=== PATIENT | female | born 1980 | race Caucasian/White ===

== ENCOUNTER 2020-06-19 15:30 | IRF | payer OTHER, SELFPAY ==
--- NOTE | 2020-06-19 16:17 | PC.NURSE ---
This patient, Rylie Cordova, was admitted to [facility] Room 219-01. Patient/family oriented to hospital policies and general routines including ID bracelet, bed and alarms, visiting hours, pain management, procedures, bathroom and other care routines, personal items, smoking policy, room service/diet, and visiting hours. Information on how to activate the Rapid Response Team has been discussed. Patient/Family are encouraged to report perceived risks to care and to ask questions if they do not understand what they are told or what they should do.
[2020-06-19 16:22] VITALS: BMI 30.2
[2020-06-19 16:25] VITALS: BP 123/66; PULSE 93; RESP 20; TEMP 36.8; O2SAT 95
--- NOTE | 2020-06-19 19:58 | PC.NURSE ---
pt had emesis at 1900 and she states she does not tolerate onion and she had eaten a short while before. I will call for julita torrez.
[2020-06-19] MEDS: LACTULOSE 20 GM/30 ML UDC 30 GM PO (21:07)
[2020-06-19] MEDS: GABAPENTIN 400 MG CAPSULE 800 MG PO (21:09)
[2020-06-19] MEDS: ATORVASTATIN 40 MG TABLET 80 MG PO (21:09)
[2020-06-19] MEDS: MELATONIN 3 MG TABLET PO (21:10)
[2020-06-19] MEDS: HEPARIN SODIUM 5,000 UNITS/ML VIAL 5000 UNITS SUB-Q (21:10)
[2020-06-19] MEDS: ACETAMINOPHEN 500 MG TABLET PO (21:17)
[2020-06-19 21:29] VITALS: BP 141/81; PULSE 80; RESP 16; TEMP 36.6; O2SAT 96
[2020-06-20 05:03] LABS: Basophils Percent Auto 0.2 % (0.2-1.2); Eosinophils Absolute Auto 0.2 K/mm3 (0-0.3); Hematocrit 41.1 % (37.0-47.0); Hemoglobin 13.7 g/dL (12.0-15.0); Immature Granulocyte Absolute 0.22 K/mm3 (0.00-0.031); Immature Granulocyte Percent A 1.2 % (0-0.5); Lymphocytes Absolute Auto 4.36 K/mm3 (0.9-3.2); Lymphocytes Percent Auto 23.2 % (18.3-44.2); Mean Corpuscular HGB Conc 33.3 g/dl (32-36); Mean Corpuscular Hemoglobin 30.9 pg (26-34); Mean Corpuscular Volume 92.8 fl (80-100); Mean Platelet Volume 8.2 fl (7.4-10.4); Monocytes Absolute Auto 1.1 K/mm3 (0.1-0.6); Monocytes Percent Auto 5.6 % (2.6-8.5); Neutrophils Absolute Auto 12.9 K/mm3 (1.3-6.7); Neutrophils Percent Auto 68.8 % (45.5-73.1); Platelet Count Result 658 k/mm3 (150-375); Red Blood Count 4.43 M/mm3 (4.2-5.4); Red Cell Distribution Width 13.2 % (11.5-14.5); White Blood Count 18.8 K/mm3 (4.5-10.0)
[2020-06-20 06:00] VITALS: BP 101/67; PULSE 73; RESP 18; TEMP 36.4; O2SAT 99
[2020-06-20] MEDS: HEPARIN SODIUM 5,000 UNITS/ML VIAL 5000 UNITS SUB-Q ×3 (06:05→20:29)
[2020-06-20 06:28] LABS: Anion Gap 8 mmol/L (8-16); Blood Urea Nitrogen 10 mg/dL (7-17); Calcium 8.9 mg/dL (8.4-10.2); Carbon Dioxide 28 mmol/L (22-30); Chloride 99 mmol/L (98-107); Estimated CRCL calculation 112 ml/min; Estimated Glomerular Filt Rate > 60; Glucose 102 mg/dL (65-105); Potassium 3.2 mmol/L (3.4-5.0); Sodium 135 mmol/L (137-145)
[2020-06-20] MEDS: NICOTINE (*PBKC) 7 MG PATCH 1 PATCH TRANSDERM (09:29)
[2020-06-20] MEDS: MULTIVIT/MIN/PREN/FOL AC/IRON TABLET 1 TAB PO (09:30)
[2020-06-20] MEDS: GABAPENTIN 400 MG CAPSULE 800 MG PO ×3 (09:30→17:56)
[2020-06-20] MEDS: ASPIRIN 81 MG CHEWABLE TABLET BY MOUTH (09:30)
[2020-06-20] MEDS: ARIPiprazole 5 MG TABLET PO (09:30)
[2020-06-20] MEDS: predniSONE 20 MG TABLET 60 MG PO (09:30)
[2020-06-20] MEDS: DULoxetine HCL 60 MG CAPSULE.DR PO (09:30)
[2020-06-20] MEDS: ACETAMINOPHEN 500 MG TABLET PO ×2 (09:31→14:25)
--- NOTE | 2020-06-20 09:58 | PM.IMHP ---
H&P: HPI History of Present Illness Date/Time: 06/20/20 09:58 Chief complaint: cva Narrative: Rylie Cordova is a 39 year old female is related to our acute rehab with the diagnosis of stroke / the etiologic diagnosis is punctate acute ischemic infarction of the left side of middle The patient examined [id number] at 9:00 a.m. on June 20, 2020 H and P The patient is a 39-year-old right-handed white woman with a past medical history of headaches and visual disturbances status post right temporal craniotomy with resection in December of 2019 who presented to a local hospital on June 14, 2020 with right facial droop and slurring of the speech. The patient reported that on June 13, 2020 she felt generally unwell and developed gait changes due to bilateral leg weakness and poor balance right hand and foot numbness, blurriness of the vision and multiple bouts of emesis. Her boyfriend reported that when he called the patient that morning she was not acting like herself and her speech was slurred. At around 4:00 p.m. when he arrived at her home the by friend noticed a right facial droop and she was taken to the hospital. CT of the head showed no acute intracranial process. She was transferred to [facility] for further care. The NIHSS upon arrival was 5. She was not given tPA, presented outside the window, and CTA showed no large vessel occlusion some mechanical thrombectomy was not indicated. Of note the patient underwent an MRI guided stereotactic right temporal craniotomy with resection in December of 2019. During the procedure the patient had a seizure. Postop MRI showed more than 95% resection. 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 She was discharged on Keppra for a month and dexamethasone for 3 days. In February 2020 she continue complained of blurriness of the vision and worsening gait in her outpatient neurosurgery follow-up visit. Repeat brain MRI in March 2020 showed multiple new ring-enhancing lesion in the right basal ganglia denisha medulla and nonsensical lesion in the right frontal and chronic right posterior cerebral artery infarcts. She was admitted between April 17 and April 24 a [facility] and Rheumatology and Ophthalmology were consulted. Workup for systemic was colitis was negative at the time. She was given Solu-Medrol 1000 milligram for 5 days and Cytoxan for 6 days. Her symptoms improved. Repeat brain MRI showed that the enhancing lesion had either shrunk or could no longer be visualized. This was suggestive of good treatment response combination of Solu-Medrol and Cytoxan. She failed to attend follow-up appointments. New more I this hospitalization showed new enhancing lesions in the left parieto-occipital region suggestive of TRAIN BRAKE OPERATOR vasculitis reoccurrence. 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 She was given Cytoxan on Tuesday and pulse steroids were implemented. She will receive 1 gram daily for 3 days and transition to an old regimen of prednisone were milligram per kilogram to be slowly tapered at outpatient follow-up. Rheumatology was consulted and agreed with the above plan of Cytoxan and steroids and added Bactrim for P NORBERT prophylaxis given high-dose steroid use. Neurology was also consulted contacted and the patient was placed on aspirin and atorvastatin. Physical examination continues to reveal impaired balance decreased gross motor controlled left-sided weakness and decreased safety awareness her speech is clear and she is good for regular consistency diet. The patient was discharged to us on subcutaneous heparin and will continue on this until the patient is ambulating consistently least 150 feet be daily The patient has not traveled outside the use or had contact with someone who is ill that has trouble after the [place] in the past 21 days. The patient has not traveled ordinary of the [place] that is experiencing known transmission of the [place]
--- NOTE | 2020-06-20 11:26 | PC.NURSE ---
pt refused laxatives this morning stating she had a bowel movement last night. updated.
[2020-06-20] MEDS: POTASSIUM CHLORIDE 20 MEQ TABLET.ER PO (12:28)
[2020-06-20 13:03] VITALS: BMI 30.2
[2020-06-20 14:00] VITALS: BP 114/75; PULSE 84; RESP 18; TEMP 36.5; O2SAT 97
--- NOTE | 2020-06-20 16:32 | RPD ---
INDIVIDUALIZED PLAN OF CARE FOR Rylie Cordova Brief Synthesis of Pre-Admission Screen, Post-Admission Evaluation and Therapy Evaluations: The patient presents to rehab with a punctate acute ischemic infarction of left side of medulla. Comorbidities include dysarthria, facial droop, left-sided weakness, chronic pain, tachycardia, steroid-induced leukocytosis, left homonymous hemianopia, thrombocytosis, and RN PLASTIC SURGERY vasculitis. The complexity of the patient's medical management, nursing, and therapy needs require an inpatient rehab hospital stay with a physician-led interdisciplinary team approach. The patient?s needs will be best met in an intensive program vs. at a lower level of care. The patient requires physician services for neurology services, medical oversight, and coordination of care. Emotional needs will be monitored as depression is a common sequelae of stroke. The patient needs physician monitoring and treatment of thrombocytosis, leukocytosis, monitoring for adverse reactions to new medications, monitoring of infection, and pain control. The patient requires nursing services for frequent neuro checks, anticoagulation therapy, medication management and education, pressure relief and skin care management, monitoring of labs, bowel and bladder training, steroid administration and education, and fall/safety precautions. Deficits include:ADLs, Balance, Endurance, Family Training/Education, Mobility, Pain Management, ROM, Safety, Speech, Strength, and Transfers. [employer] Architect/Case Management for: Discharge Planning and Patient/Family Counseling Physical Therapy: 5 days per week for 75 minutes. Treatments may include: Therapeutic Exercise, Gait Training, Neuromuscular Re-education, Transfer Training, Community Reintegration, Bed Mobility, Patient/Family Education, Wheelchair Mobility Group Therapy/Concurrent Therapy Rationales: -Improve attention span during functional activities in a distracted environment. -Enhance problem solving and/or adequate judgment skills during functional activities in a distracted environment. -Promote increased safety awareness in a distracted environment to reduce fall risk with functional tasks, transfers, and ambulation to allow a more safe, self-sufficient return to the home environment. -Improve dynamic balance skills to promote safety and independence with functional activities in a distracted environment for maximum gain. Occupational Therapy: 5 days per week for 75 minutes. Treatments may include: Therapeutic Exercise, Therapeutic Activity, Cognitive Training, Self-Care Transfer Training, Community Reintegration, Home Management, Patient/Family Education, Wheelchair Mobility Training, Energy Conservation Training Group Therapy/Concurrent Therapy Rationales: -Allow therapist to observe and teach generalization and carry-over of skills learned in individual therapy. -Enhance problem solving and sequencing skills during therapeutic activities in a distracted environment. -Promote increased safety awareness in a realistic setting to reduce fall risk with functional tasks due to visual and verbal distractions. -Increase functional level with ADLs, ADL transfers and use of adaptive equipment through therapeutic activities with others while promoting safety to allow a more safe, self-sufficient return home. Speech Therapy: 5 days per week for 30 minutes. Treatments may include: Dysphasia Therapy, Speech/Language/Communication Therapy, Cognitive Training, Patient/Family Education Group Therapy/Concurrent Therapy - Rationale: -Allow therapist to observe and teach generalization and carry-over of skills learned in individual therapy. -Improve comprehension skills with complex or abstract ideas through discussion in a realistic setting. -Enhance problem solving skills with complex issues during activities in a distracted environment. -Promote increased memory skills and concentration in a distracted environment for a safe transition home
[2020-06-20] MEDS: ATORVASTATIN 40 MG TABLET 80 MG PO (20:28)
[2020-06-20] MEDS: MELATONIN 3 MG TABLET PO (20:29)
[2020-06-20 20:46] VITALS: BP 130/79; PULSE 109; RESP 18; TEMP 36.2; O2SAT 96
[2020-06-21 05:51] VITALS: BP 125/87; PULSE 99; RESP 18; TEMP 36; O2SAT 100
[2020-06-21] MEDS: HEPARIN SODIUM 5,000 UNITS/ML VIAL 5000 UNITS SUB-Q ×3 (05:53→19:47)
[2020-06-21 08:00] VITALS: PULSE 99; RESP 18; O2SAT 100
[2020-06-21 08:16] VITALS: TEMP 36
[2020-06-21] MEDS: ACETAMINOPHEN 500 MG TABLET PO ×3 (08:16→20:21)
[2020-06-21] MEDS: GABAPENTIN 400 MG CAPSULE 800 MG PO ×3 (08:17→17:08)
[2020-06-21] MEDS: polyethylene glycoL 3350 17 GM POWD.PACK PO (08:18)
[2020-06-21] MEDS: SENNA/DOCUSATE SODIUM TABLET 1 TAB PO (08:18)
[2020-06-21] MEDS: POTASSIUM CHLORIDE 20 MEQ TABLET.ER PO (08:18)
[2020-06-21] MEDS: predniSONE 20 MG TABLET 60 MG PO (08:18)
[2020-06-21] MEDS: MULTIVIT/MIN/PREN/FOL AC/IRON TABLET 1 TAB PO (08:18)
[2020-06-21] MEDS: DULoxetine HCL 60 MG CAPSULE.DR PO (08:18)
[2020-06-21] MEDS: ASPIRIN 81 MG CHEWABLE TABLET BY MOUTH (08:19)
[2020-06-21] MEDS: NICOTINE (*PBKC) 7 MG PATCH 1 PATCH TRANSDERM (08:19)
[2020-06-21] MEDS: ARIPiprazole 5 MG TABLET PO (10:30)
--- NOTE | 2020-06-21 12:40 | PCOTNOTE ---
Patient completed kitchen mobility CGA without assistive device or adaptive equipment. Required verbal cues for safety and environmental hazards.
--- NOTE | 2020-06-21 13:08 | WPDNEURORHBP ---
Subjective Date/time seen: 06/21/20 13:08 39 years old lady admitted to the rehab floor for the complaints of left hemiparesis, incoordination, and documented WIND TURBINE INSTALLER vasculitis by biopsy and rather stormy course along with the treatment of vasculitis with steroids and Cytoxan. At present her WBCs are 8.8, platelet count 658, potassium 3.2 and COVID negative. She is receiving aspirin 81 mg daily, Abilify 5 mg daily, duloxetine, and Bactrim DS 1 p.o. b.i.d. in addition to prednisone 60 mg daily Review of Systems Review of Systems: All systems reviewed & are unremarkable except as noted in HPI and below Functional Status Ambulation Ability Ability to Ambulate 10 Feet: Contact Guard Ability to Ambulate 50 Feet With 2 Turns: Contact Guard Ability to Ambulate 150 Feet: Contact Guard Ambulation Assistive Devices: None Transfers Ability Ability to Transfer In/Out of Chair: Contact Guard Exam Narrative: Exam Narrative: today's examination reveals her to be awake alert cooperative in different to her own cognitive deficit in no acute problem head normocephalic, your nose throat examination normal, neck is supple, heart regular with no murmur, lungs clear, abdomen is soft, and neuro examination reveals her to be with mild cognitive deficit, with visual field deficit and gait dysfunction Objective Data Vital Signs Vital Signs: Vital Signs - 24 hr 06/20/20 14:00 06/20/20 20:46 06/21/20 05:51 Temperature 36.5 C 36.2 C L 36.0 C L Pulse Rate 84 109 H 99 Respiratory Rate 18 18 18 Blood Pressure 114/75 130/79 125/87 Pulse Oximetry 97 96 100 06/21/20 08:00 06/21/20 08:16 Temperature 36.0 C L Pulse Rate 99 Respiratory Rate 18 Blood Pressure Pulse Oximetry 100 Intake/Output Intake/Output: Intake & Output 06/18/20 06/19/20 06/20/20 06/21/20 23:59 23:59 23:59 23:59 Intake Total 120 840 240 Balance 120 840 240 Meds/Results Medications: Active Medications Generic Name Dose Route Start Last Admin Trade Name Freq PRN Reason Stop Dose Admin Acetaminophen 500 mg 06/19/20 17:07 06/21/20 08:16 Acetaminophen 500 Mg Tablet PO 500 mg Q4H PRN Administration Mild Pain (Scale Score 1-4) Aripiprazole 5 mg 06/20/20 09:00 06/21/20 10:30 Aripiprazole 5 Mg Tablet PO 5 mg DAILY JONNY Administration Aspirin 81 mg 06/20/20 09:00 06/21/20 08:19 Aspirin 81 Mg Chewable Tablet BY MOUTH 81 mg DAILY JONNY Administration Atorvastatin Calcium 80 mg 06/19/20 21:00 06/20/20 20:28 Atorvastatin 40 Mg Tablet PO 80 mg HS JONNY Administration Duloxetine HCl 60 mg 06/20/20 09:00 06/21/20 08:18 Duloxetine Hcl 60 Mg Capsule.Dr PO 60 mg DAILY JONNY Administration Gabapentin 800 mg 06/19/20 17:35 06/21/20 08:17 Gabapentin 400 Mg Capsule PO 800 mg TID JONNY Administration Heparin Sodium (Porcine) 5,000 units 06/19/20 22:00 06/21/20 05:53 Heparin Sodium 5,000 Units/Ml Vial SUB-Q 5,000 units Q8HR JONNY Administration Lactulose 30 gm 06/19/20 17:14 06/19/20 21:07 Lactulose 20 Gm/30 Ml Udc PO 30 gm QAM PRN Administration Constipation Lidocaine 1 patch 06/19/20 17:07 Lidocaine 5% Patch TOPICAL DAILY PRN Back Pain Melatonin 3 mg 06/19/20 21:00 06/20/20 20:29 Melatonin 3 Mg Tablet PO 3 mg HS JONNY Administration Nicotine 1 patch 06/19/20 17:35 06/21/20 08:19 Nicotine (*Pbkc) 7 Mg Patch TRANSDERM 1 patch DAILY JONNY Administration Ondansetron HCl 4 mg 06/19/20 19:53 Ondansetron Hcl Odt 4 Mg Tablet PO Q6H PRN Nausea And Vomiting Polyethylene Glycol 17 gm 06/20/20 09:00 06/21/20 08:18 Polyethylene Glycol 3350 17 Gm Powd.Pack PO 17 gm DAILY JONNY Administration Potassium Chloride 20 meq 06/20/20 08:00 06/21/20 08:18 Potassium Chloride 20 Meq Tablet.Er PO 20 meq DAILY@0800 JONNY Administration Prednisone 60 mg 06/20/20 09:00 06/21/20 08:18 Prednisone 20 Mg Tablet PO 07/03/20 09:01 60 mg
[2020-06-21 14:00] VITALS: BP 123/76; PULSE 91; RESP 20; TEMP 36.8; O2SAT 98
[2020-06-21 14:02] VITALS: TEMP 36
[2020-06-21] MEDS: ATORVASTATIN 40 MG TABLET 80 MG PO (19:47)
[2020-06-21] MEDS: MELATONIN 3 MG TABLET PO (19:47)
[2020-06-21 22:00] VITALS: BP 118/68; PULSE 80; RESP 21; TEMP 35.9; O2SAT 100
[2020-06-22 06:00] VITALS: BP 129/71; PULSE 86; RESP 21; TEMP 36.1; O2SAT 100
[2020-06-22] MEDS: HEPARIN SODIUM 5,000 UNITS/ML VIAL 5000 UNITS SUB-Q (06:19)
[2020-06-22 08:00] VITALS: PULSE 86; RESP 21; O2SAT 100
[2020-06-22] MEDS: POTASSIUM CHLORIDE 20 MEQ TABLET.ER PO (08:30)
[2020-06-22] MEDS: ARIPiprazole 5 MG TABLET PO (08:30)
[2020-06-22] MEDS: ASPIRIN 81 MG CHEWABLE TABLET BY MOUTH (08:30)
[2020-06-22] MEDS: GABAPENTIN 400 MG CAPSULE 800 MG PO ×3 (08:31→16:42)
[2020-06-22] MEDS: DULoxetine HCL 60 MG CAPSULE.DR PO (08:31)
[2020-06-22] MEDS: SENNA/DOCUSATE SODIUM TABLET 1 TAB PO (08:31)
[2020-06-22] MEDS: polyethylene glycoL 3350 17 GM POWD.PACK PO (08:32)
[2020-06-22] MEDS: NICOTINE (*PBKC) 7 MG PATCH 1 PATCH TRANSDERM (08:32)
[2020-06-22] MEDS: predniSONE 20 MG TABLET 60 MG PO (08:32)
[2020-06-22] MEDS: MULTIVIT/MIN/PREN/FOL AC/IRON TABLET 1 TAB PO (08:33)
--- NOTE | 2020-06-22 13:29 | WPDNEUROPN ---
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: Code(s): I63.9 - Cerebral infarction, unspecified; G83.9 - Paralytic syndrome, unspecified Status: Acute (5) Status post craniotomy: Code(s): Z98.890 - Other specified postprocedural states Status: Acute (6) Status post stereotactic brain biopsy: Code(s): Z98.890 - Other specified postprocedural states Status: Acute (7) DRIER AND EVAPORATOR OPERATOR vasculitis: Code(s): I77.6 - Arteritis, unspecified Status: Acute Additional Plan stable involving the physical therapy and occupational therapy will continue the management as such Review of Systems Review of Systems: All systems reviewed & are unremarkable except as noted in HPI and below Exam Narrative: Exam Narrative: examine today revealed her to be awake alert cooperative in no obvious acute distress. Head normocephalic with no cranial bruit. Ear nose throat examination normal. No mucous membrane drainage. Heart regular with no murmur. Lungs clear to auscultation with no rhonchi or crepitation. Abdomen is soft with normal bowel sounds and no organomegaly. Neurological examination reveals her to have unchanged neuro deficit that is the visual field deficit and gait dysfunction Objective Data Vital Signs Vital Signs: Vital Signs - 24 hr 06/21/20 14:00 06/21/20 14:02 06/21/20 22:00 Temperature 36.8 C 36.0 C L 35.9 C L Pulse Rate 91 80 Respiratory Rate 20 21 H Blood Pressure 123/76 118/68 Pulse Oximetry 98 100 06/22/20 06:00 06/22/20 08:00 Temperature 36.1 C L Pulse Rate 86 86 Respiratory Rate 21 H 21 H Blood Pressure 129/71 Pulse Oximetry 100 100 Intake/Output Intake/Output: Intake & Output 06/19/20 06/20/20 06/21/20 06/22/20 23:59 23:59 23:59 23:59 Intake Total 120 840 840 240 Balance 120 840 840 240 Meds/Results Medications: Active Medications Generic Name Dose Route Start Last Admin Trade Name Freq PRN Reason Stop Dose Admin Acetaminophen 500 mg 06/19/20 17:07 06/21/20 20:21 Acetaminophen 500 Mg Tablet PO 500 mg Q4H PRN Administration Mild Pain (Scale Score 1-4) Aripiprazole 5 mg 06/20/20 09:00 06/22/20 08:30 Aripiprazole 5 Mg Tablet PO 5 mg DAILY JONNY Administration Aspirin 81 mg 06/20/20 09:00 06/22/20 08:30 Aspirin 81 Mg Chewable Tablet BY MOUTH 81 mg DAILY JONNY Administration Atorvastatin Calcium 80 mg 06/19/20 21:00 06/21/20 19:47 Atorvastatin 40 Mg Tablet PO 80 mg HS JONNY Administration Duloxetine HCl 60 mg 06/20/20 09:00 06/22/20 08:31 Duloxetine Hcl 60 Mg Capsule.Dr PO 60 mg DAILY JONNY Administration Gabapentin 800 mg 06/19/20 17:35 06/22/20 13:22 Gabapentin 400 Mg Capsule PO 800 mg TID JONNY Administration Lactulose 30 gm 06/19/20 17:14 06/19/20 21:07 Lactulose 20 Gm/30 Ml Udc PO 30 gm QAM PRN Administration Constipation Lidocaine 1 patch 06/19/20 17:07 Lidocaine 5% Patch TOPICAL DAILY PRN Back Pain Melatonin 3 mg 06/19/20 21:00 06/21/20 19:47 Melatonin 3 Mg Tablet PO 3 mg HS JONNY Administration Nicotine 1 patch 06/19/20 17:35 06/22/20 08:32 Nicotine (*Pbkc) 7 Mg Patch TRANSDERM 1 patch DAILY JONNY Administration Ondansetron HCl 4 mg 06/19/20 19:53 Ondansetron Hcl Odt 4 Mg Tablet PO Q6H PRN Nausea And Vomiting Polyethylene Glycol 17 gm 06/20/20 09:00 06/22/20 08:32 Polyethylene Glycol 3350 17 Gm Powd.Pack PO 17 gm DAILY JONNY Administration Potassium Chloride 20 meq
[2020-06-22 14:00] VITALS: BP 111/63; PULSE 93; RESP 18; TEMP 35.6; O2SAT 96
[2020-06-22] MEDS: ACETAMINOPHEN 500 MG TABLET PO (20:46)
[2020-06-22] MEDS: ATORVASTATIN 40 MG TABLET 80 MG PO (20:47)
[2020-06-22] MEDS: MELATONIN 3 MG TABLET PO (20:47)
[2020-06-22 22:00] VITALS: BP 117/94; PULSE 83; RESP 18; TEMP 36.1; O2SAT 98
[2020-06-23 06:00] VITALS: BP 130/81; PULSE 78; RESP 16; TEMP 36; O2SAT 100
[2020-06-23 08:00] VITALS: PULSE 78; RESP 16; O2SAT 100
[2020-06-23] MEDS: POTASSIUM CHLORIDE 20 MEQ TABLET.ER PO (08:14)
[2020-06-23] MEDS: MULTIVIT/MIN/PREN/FOL AC/IRON TABLET 1 TAB PO (08:14)
[2020-06-23] MEDS: ASPIRIN 81 MG CHEWABLE TABLET BY MOUTH (08:14)
[2020-06-23] MEDS: SENNA/DOCUSATE SODIUM TABLET 1 TAB PO (08:15)
[2020-06-23] MEDS: ARIPiprazole 5 MG TABLET PO (08:15)
[2020-06-23] MEDS: predniSONE 20 MG TABLET 60 MG PO (08:16)
[2020-06-23] MEDS: DULoxetine HCL 60 MG CAPSULE.DR PO (08:16)
[2020-06-23] MEDS: GABAPENTIN 400 MG CAPSULE 800 MG PO ×3 (08:16→17:41)
[2020-06-23] MEDS: NICOTINE (*PBKC) 7 MG PATCH 1 PATCH TRANSDERM (08:16)
[2020-06-23] MEDS: polyethylene glycoL 3350 17 GM POWD.PACK PO (08:16)
[2020-06-23 14:00] VITALS: BP 126/74; PULSE 96; RESP 18; TEMP 36.6; O2SAT 99
[2020-06-23 14:22] VITALS: TEMP 36
[2020-06-23] MEDS: ACETAMINOPHEN 500 MG TABLET PO ×2 (14:22→20:18)
[2020-06-23] MEDS: LACTULOSE 20 GM/30 ML UDC 30 GM PO (17:44)
[2020-06-23] MEDS: MELATONIN 3 MG TABLET PO (20:15)
[2020-06-23] MEDS: ATORVASTATIN 40 MG TABLET 80 MG PO (20:15)
[2020-06-23 20:43] VITALS: BP 139/88; PULSE 93; RESP 20; TEMP 35.9; O2SAT 98
[2020-06-24 04:59] VITALS: BP 113/76; PULSE 77; RESP 18; TEMP 36.4; O2SAT 98
[2020-06-24] MEDS: predniSONE 20 MG TABLET 60 MG PO (07:41)
[2020-06-24] MEDS: ARIPiprazole 5 MG TABLET PO (07:42)
[2020-06-24] MEDS: NICOTINE (*PBKC) 7 MG PATCH 1 PATCH TRANSDERM (07:42)
[2020-06-24] MEDS: POTASSIUM CHLORIDE 20 MEQ TABLET.ER PO (07:42)
[2020-06-24] MEDS: MULTIVIT/MIN/PREN/FOL AC/IRON TABLET 1 TAB PO (07:42)
[2020-06-24] MEDS: SENNA/DOCUSATE SODIUM TABLET 1 TAB PO (07:42)
[2020-06-24] MEDS: DULoxetine HCL 60 MG CAPSULE.DR PO (07:42)
[2020-06-24] MEDS: GABAPENTIN 400 MG CAPSULE 800 MG PO ×3 (07:43→16:59)
[2020-06-24] MEDS: ASPIRIN 81 MG CHEWABLE TABLET BY MOUTH (07:46)
--- NOTE | 2020-06-24 08:16 | PC.NURSE ---
pt refused miralax this morning. updated.
[2020-06-24 14:00] VITALS: BP 122/74; PULSE 79; RESP 20; TEMP 36.6; O2SAT 97
[2020-06-24] MEDS: LACTULOSE 20 GM/30 ML UDC 30 GM PO (17:04)
--- NOTE | 2020-06-24 17:20 | WPDNEURORHBP ---
Subjective Date/time seen: 06/24/20 17:20 39 years old lady admitted to the rehab floor for the complaints of left hemiparesis with incoordination and history of biopsy-proven CLINICAL OUTCOMES MANAGER vasculitis Review of Systems Review of Systems: All systems reviewed & are unremarkable except as noted in HPI and below Functional Status Ambulation Ability Ability to Ambulate 10 Feet: Standby Assistance Ability to Ambulate 50 Feet With 2 Turns: Standby Assistance Ability to Ambulate 150 Feet: Standby Assistance Ambulation Assistive Devices: None Transfers Ability Ability to Transfer In/Out of Chair: Independent Exam Narrative: Exam Narrative: on examination today she is awake alert cooperative in no obvious acute distress, extremely pleasant and cooperative,speech not dysphasic not dysarthric not dysphonic, very anxious to go home, ear nose throat examination normal, neck supple, heart regular with no murmur, lungs clear to auscultation ,abdomen is soft with no organomegaly, normal bowel sounds,neuro examination essentially unchanged Objective Data Vital Signs Vital Signs: Vital Signs - 24 hr 06/23/20 20:43 06/24/20 04:59 06/24/20 14:00 Temperature 35.9 C L 36.4 C 36.6 C Pulse Rate 93 77 79 Respiratory Rate 20 18 20 Blood Pressure 139/88 113/76 122/74 Pulse Oximetry 98 98 97 Intake/Output Intake/Output: Intake & Output 06/21/20 06/22/20 06/23/20 06/24/20 23:59 23:59 23:59 23:59 Intake Total 982 850 5999 720 Balance 314 900 5553 720 Meds/Results Medications: Active Medications Generic Name Dose Route Start Last Admin Trade Name Walker PRN Reason Stop Dose Admin Acetaminophen 500 mg 06/19/20 17:07 06/23/20 20:18 Acetaminophen 500 Mg Tablet PO 500 mg Q4H PRN Administration Mild Pain (Scale Score 1-4) Aripiprazole 5 mg 06/20/20 09:00 06/24/20 07:42 Aripiprazole 5 Mg Tablet PO 5 mg DAILY JONNY Administration Aspirin 81 mg 06/20/20 09:00 06/24/20 07:46 Aspirin 81 Mg Chewable Tablet BY MOUTH 81 mg DAILY JONNY Administration Atorvastatin Calcium 80 mg 06/19/20 21:00 06/23/20 20:15 Atorvastatin 40 Mg Tablet PO 80 mg HS JONNY Administration Duloxetine HCl 60 mg 06/20/20 09:00 06/24/20 07:42 Duloxetine Hcl 60 Mg Capsule.Dr PO 60 mg DAILY JONNY Administration Gabapentin 800 mg 06/19/20 17:35 06/24/20 16:59 Gabapentin 400 Mg Capsule PO 800 mg TID JONNY Administration Lactulose 30 gm 06/19/20 17:14 06/24/20 17:04 Lactulose 20 Gm/30 Ml Udc PO 30 gm QAM PRN Administration Constipation Lidocaine 1 patch 06/19/20 17:07 Lidocaine 5% Patch TOPICAL DAILY PRN Back Pain Melatonin 3 mg 06/19/20 21:00 06/23/20 20:15 Melatonin 3 Mg Tablet PO 3 mg HS JONNY Administration Nicotine 1 patch 06/19/20 17:35 06/24/20 07:42 Nicotine (*[place]) 7 Mg Patch TRANSDERM 1 patch DAILY JONNY Administration Ondansetron HCl 4 mg 06/19/20 19:53 Ondansetron Hcl Odt 4 Mg Tablet PO Q6H PRN Nausea And Vomiting Polyethylene Glycol 17 gm 06/24/20 13:02 Polyethylene Glycol 3350 17 Gm Powd.Pack PO DAILY PRN Constipation Potassium Chloride 20 meq 06/20/20 08:00 06/24/20 07:42 Potassium Chloride 20 Meq Tablet.Er PO 20 meq DAILY@0800 JONNY Administration Prednisone 60 mg 06/20/20 09:00 06/24/20 07:41 Prednisone 20 Mg Tablet PO 07/03/20 09:01 60 mg DAILY JONNY Administration Vit/Calcium/Iron/Folic Ac 1 tab 06/20/20 09:00 06/24/20 07:42 Multivit/Min/Pren/Fol Ac/Iron Tablet PO 1 tab DAILY JONNY Administration Senna/Docusate Sodium 1 tab 06/20/20 09:00 06/24/20 07:42 Senna/Docusate Sodium Tablet PO 1 tab DAILY JONNY Administration Trimethoprim/Sulfamethoxazole 1 tab 06/19/20 17:35 06/24/20 17:00 Trimethoprim/Sulfamethoxazole 160-800 Mg Ds Tablet PO 1 tab BID JONNY Administration Progress Note: A&P Assessment and Plan (1) Posterior circulation stroke: Code
[2020-06-24] MEDS: MELATONIN 3 MG TABLET PO (20:05)
[2020-06-24] MEDS: ATORVASTATIN 40 MG TABLET 80 MG PO (20:06)
[2020-06-24] MEDS: ACETAMINOPHEN 500 MG TABLET PO (20:06)
[2020-06-24 22:00] VITALS: BP 113/66; PULSE 83; RESP 17; TEMP 36.5; O2SAT 96
[2020-06-25 06:00] VITALS: BP 129/63; PULSE 78; RESP 16; TEMP 36.1; O2SAT 98
[2020-06-25] MEDS: predniSONE 20 MG TABLET 60 MG PO (08:37)
[2020-06-25] MEDS: ARIPiprazole 5 MG TABLET PO (08:37)
[2020-06-25] MEDS: DULoxetine HCL 60 MG CAPSULE.DR PO (08:37)
[2020-06-25] MEDS: NICOTINE (*PBKC) 7 MG PATCH 1 PATCH TRANSDERM (08:37)
[2020-06-25] MEDS: MULTIVIT/MIN/PREN/FOL AC/IRON TABLET 1 TAB PO (08:37)
[2020-06-25] MEDS: ASPIRIN 81 MG CHEWABLE TABLET BY MOUTH (08:37)
[2020-06-25] MEDS: GABAPENTIN 400 MG CAPSULE 800 MG PO ×3 (08:37→17:37)
[2020-06-25] MEDS: SENNA/DOCUSATE SODIUM TABLET 1 TAB PO (08:37)
[2020-06-25] MEDS: POTASSIUM CHLORIDE 20 MEQ TABLET.ER PO (08:37)
[2020-06-25] MEDS: ACETAMINOPHEN 500 MG TABLET PO ×3 (08:38→20:08)
--- NOTE | 2020-06-25 13:59 | PCNFU ---
Nutrition Follow-Up Complete: Obesity related to excessive energy intake +/- inadequate energy expenditure as evidenced by BMI of 30.2. Patient to consume 75% of meals or greater. Goal: achieved Pt current nutrition is heart healthy, which is appropriate. Nutrition recommendation: none at this time. Last recorded weight is 82.3 kg, recommend updated weight prior to discharge. Bowel Motility: last documented BM from nurse chart on 06/20. Labs Reviewed: recommend updated labs from 06/20: Na (135), K (3.2), Cr (.6) Meds Noted: Abilify, lactulose, Kcl, Senna, Cymbalta, Neurontin Additional Notes: Pt has PRN order for Senna, and Lactulose, recommend additional medication to promote bowel movement if none occurs today on 06/25. Integumentary integrity is WNL. Follow up every 7 days.
[2020-06-25 14:00] VITALS: BP 130/79; PULSE 100; RESP 18; TEMP 36; O2SAT 97
--- NOTE | 2020-06-25 14:48 | PCNSR ---
On 06/25/20, the student, Allison Dougherty, provided care and completed [facility] documentation on this patient. I have reviewed the student's documentation and agree with the findings.
--- NOTE | 2020-06-25 17:26 | WPDNEURORHBP ---
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 Review of Systems Review of Systems: All systems reviewed & are unremarkable except as noted in HPI and below Functional Status Ambulation Ability Ability to Ambulate 10 Feet: Standby Assistance Ability to Ambulate 50 Feet With 2 Turns: Standby Assistance Ability to Ambulate 150 Feet: Standby Assistance Ambulation Assistive Devices: None Transfers Ability Ability to Transfer In/Out of Chair: Standby Assistance Exam Narrative: Exam Narrative: on examination today she is awake alert cooperative, very alert and very quick in understanding ,speech not dysphasic, not dysarthric,no dysphonic, head normocephalic, ears nose throat examination normal, mucous membranes moist, no obvious rhinorrhea, heart regular with no murmur, lungs clear to auscultation with no crepitation, abdomen is soft, non tender, normal bowel sounds ,and neuro examination again unchanged ,she has been ambulating 150ft with standby assistance and able to transfer in and out of chair independently Objective Data Vital Signs Vital Signs: Vital Signs - 24 hr 06/24/20 22:00 06/25/20 06:00 06/25/20 14:00 Temperature 36.5 C 36.1 C L 36.0 C L Pulse Rate 83 78 100 Respiratory Rate 17 16 18 Blood Pressure 113/66 129/63 130/79 Pulse Oximetry 96 98 97 Intake/Output Intake/Output: Intake & Output 06/22/20 06/23/20 06/24/20 06/25/20 23:59 23:59 23:59 23:59 Intake Total 720 1440 960 480 Balance 720 1440 960 480 Meds/Results Medications: Active Medications Generic Name Dose Route Start Last Admin Trade Name Freq PRN Reason Stop Dose Admin Acetaminophen 500 mg 06/19/20 17:07 06/25/20 08:38 Acetaminophen 500 Mg Tablet PO 500 mg Q4H PRN Administration Mild Pain (Scale Score 1-4) Aripiprazole 5 mg 06/20/20 09:00 06/25/20 08:37 Aripiprazole 5 Mg Tablet PO 5 mg DAILY JONNY Administration Aspirin 81 mg 06/20/20 09:00 06/25/20 08:37 Aspirin 81 Mg Chewable Tablet BY MOUTH 81 mg DAILY JONNY Administration Atorvastatin Calcium 80 mg 06/19/20 21:00 06/24/20 20:06 Atorvastatin 40 Mg Tablet PO 80 mg HS JONNY Administration Duloxetine HCl 60 mg 06/20/20 09:00 06/25/20 08:37 Duloxetine Hcl 60 Mg Capsule.Dr PO 60 mg DAILY JONNY Administration Gabapentin 800 mg 06/19/20 17:35 06/25/20 12:56 Gabapentin 400 Mg Capsule PO 800 mg TID JONNY Administration Lactulose 30 gm 06/19/20 17:14 06/24/20 17:04 Lactulose 20 Gm/30 Ml Udc PO 30 gm QAM PRN Administration Constipation Lidocaine 1 patch 06/19/20 17:07 Lidocaine 5% Patch TOPICAL DAILY PRN Back Pain Melatonin 3 mg 06/19/20 21:00 06/24/20 20:05 Melatonin 3 Mg Tablet PO 3 mg HS JONNY Administration Nicotine 1 patch 06/19/20 17:35 06/25/20 08:37 Nicotine (*Pbkc) 7 Mg Patch TRANSDERM 1 patch DAILY JONNY Administration Ondansetron HCl 4 mg 06/19/20 19:53 Ondansetron Hcl Odt 4 Mg Tablet PO Q6H PRN Nausea And Vomiting Polyethylene Glycol 17 gm 06/24/20 13:02 Polyethylene Glycol 3350 17 Gm Powd.Pack PO DAILY PRN Constipation Potassium Chloride 20 meq 06/20/20 08:00 06/25/20 08:37 Potassium Chloride 20 Meq Tablet.Er PO 20 meq DAILY@0800 JONNY Administration Prednisone 60 mg 06/20/20 09:00 06/25/20 08:37 Prednisone 20 Mg Tablet PO 07/03/20 09:01 60 mg DAILY JONNY Administration Vit/Calcium/Iron/Folic Ac 1 tab 06/20/20 09:00 06/25/20 08:37 Multivit/Min/Pren/Fol Ac/Iron Tablet PO 1 tab DAILY JONNY Administration Senna/Docusate Sodium 1 tab 06/20/20 09:00 06/25/20 08:37 Senna/Docusate Sodium Tablet PO 1 tab DAILY JONNY Administration Trimethoprim/Sulfamethoxazole 1 tab 06/19/20 17:35 06/25/20 08:37 Trimethoprim/Sulfamethoxazole 160-800 Mg Ds Tablet PO 1 tab BID JONNY
[2020-06-25] MEDS: LACTULOSE 20 GM/30 ML UDC 30 GM PO (17:42)
[2020-06-25] MEDS: ATORVASTATIN 40 MG TABLET 80 MG PO (20:08)
[2020-06-25] MEDS: MELATONIN 3 MG TABLET PO (20:08)
[2020-06-25] MEDS: polyethylene glycoL 3350 17 GM POWD.PACK PO (20:12)
[2020-06-25 22:00] VITALS: BP 135/93; PULSE 99; RESP 19; TEMP 36.1; O2SAT 97
[2020-06-26 06:00] VITALS: BP 116/75; PULSE 77; RESP 18; TEMP 36.4; O2SAT 97
[2020-06-26] MEDS: NICOTINE (*PBKC) 7 MG PATCH 1 PATCH TRANSDERM (09:45)
[2020-06-26] MEDS: predniSONE 20 MG TABLET 60 MG PO (09:45)
[2020-06-26] MEDS: ASPIRIN 81 MG CHEWABLE TABLET BY MOUTH (09:45)
[2020-06-26] MEDS: DULoxetine HCL 60 MG CAPSULE.DR PO (09:45)
[2020-06-26] MEDS: MULTIVIT/MIN/PREN/FOL AC/IRON TABLET 1 TAB PO (09:45)
[2020-06-26] MEDS: GABAPENTIN 400 MG CAPSULE 800 MG PO ×3 (09:45→17:07)
[2020-06-26] MEDS: POTASSIUM CHLORIDE 20 MEQ TABLET.ER PO (09:45)
[2020-06-26] MEDS: ARIPiprazole 5 MG TABLET PO (09:45)
[2020-06-26] MEDS: SENNA/DOCUSATE SODIUM TABLET 1 TAB PO (09:45)
[2020-06-26] MEDS: ACETAMINOPHEN 500 MG TABLET PO ×2 (09:46→20:59)
[2020-06-26 14:00] VITALS: BP 128/68; PULSE 78; RESP 20; TEMP 36.6; O2SAT 100
[2020-06-26 20:00] VITALS: O2SAT 99
[2020-06-26] MEDS: MELATONIN 3 MG TABLET PO (20:59)
[2020-06-26] MEDS: ATORVASTATIN 40 MG TABLET 80 MG PO (20:59)
[2020-06-26 22:00] VITALS: BP 115/71; PULSE 85; RESP 18; TEMP 35.8; O2SAT 99
[2020-06-27 04:55] LABS: Basophils Absolute Auto 0.1 K/mm3 (0.0-0.1); Basophils Percent Auto 0.4 % (0.2-1.2); Eosinophils Absolute Auto 0.1 K/mm3 (0-0.3); Eosinophils Percent Auto 0.5 % (0-4.4); Hematocrit 45.2 % (37.0-47.0); Hemoglobin 14.9 g/dL (12.0-15.0); Immature Granulocyte Absolute 0.25 K/mm3 (0.00-0.031); Immature Granulocyte Percent A 1.6 % (0-0.5); Lymphocytes Absolute Auto 4.06 K/mm3 (0.9-3.2); Lymphocytes Percent Auto 25.4 % (18.3-44.2); Mean Corpuscular Hemoglobin 31.3 pg (26-34); Mean Platelet Volume 8.4 fl (7.4-10.4); Monocytes Absolute Auto 0.9 K/mm3 (0.1-0.6); Monocytes Percent Auto 5.5 % (2.6-8.5); Neutrophils Absolute Auto 10.7 K/mm3 (1.3-6.7); Neutrophils Percent Auto 66.6 % (45.5-73.1); Platelet Count Result 602 k/mm3 (150-375); Red Blood Count 4.76 M/mm3 (4.2-5.4); Red Cell Distribution Width 13.5 % (11.5-14.5)
[2020-06-27 05:14] LABS: Anion Gap 10 mmol/L (8-16); Blood Urea Nitrogen 13 mg/dL (7-17); Calcium 9.6 mg/dL (8.4-10.2); Carbon Dioxide 27 mmol/L (22-30); Chloride 101 mmol/L (98-107); Estimated CRCL calculation 112 ml/min; Estimated Glomerular Filt Rate > 60; Glucose 96 mg/dL (65-105); Potassium 4.1 mmol/L (3.4-5.0); Sodium 138 mmol/L (137-145)
[2020-06-27 05:38] VITALS: BP 115/74; PULSE 64; RESP 20; TEMP 36; O2SAT 99
[2020-06-27] MEDS: ASPIRIN 81 MG CHEWABLE TABLET BY MOUTH (08:34)
[2020-06-27] MEDS: POTASSIUM CHLORIDE 20 MEQ TABLET.ER PO (08:34)
[2020-06-27] MEDS: GABAPENTIN 400 MG CAPSULE 800 MG PO (08:34)
[2020-06-27] MEDS: NICOTINE (*PBKC) 7 MG PATCH 1 PATCH TRANSDERM (08:34)
[2020-06-27] MEDS: predniSONE 20 MG TABLET 60 MG PO (08:34)
[2020-06-27] MEDS: SENNA/DOCUSATE SODIUM TABLET 1 TAB PO (08:34)
[2020-06-27] MEDS: MULTIVIT/MIN/PREN/FOL AC/IRON TABLET 1 TAB PO (08:35)
[2020-06-27] MEDS: ARIPiprazole 5 MG TABLET PO (08:35)
[2020-06-27] MEDS: DULoxetine HCL 60 MG CAPSULE.DR PO (08:35)
--- NOTE | 2020-06-29 12:40 | PM.DS ---
DS: Admitting Diagnosis Admitting Diagnosis Admitting Diagnosis: cva 39 years old lady admitted to the rehab floor for the complaints of left hemiparesis and incoordination in addition to the history of documented [employer]LYST vasculitis by biopsy. she was receiving steroids and Cytoxan with most recent WBCs running 8.8 and platelet count of 658 and she was COVID negative .at the time of discharge she was ambulating up to 150ft with contact guard and was able to transfer in and out of chair with contact guard, she was afebrile with last WBCs 16.0 hemoglobin 14.9 platelet counts 602 sodium 138 potassium 4.1 creatinine 0.6 GFR more than 60 and COVID negative ,QIM revealed that she was independent in eating, oral hygiene, toileting, upper body dressing, footwear, rolling in bed, sitting to lying, lying to sit, [id number], chair transfer, toilet transfer, car transfer, walking 10ft, 50ft with 2 turns, picking up objects, she required only supervision for bathing lower body, dressing she required supervision for walking 150ft walking 10ft on uneven surfaces step 4 steps 12 steps, wheelchair was not applicable she was discharged to her home with home health instructions during the entire hospitalization she had no falls and her condition significantly improved DS: Summary Time Spent with Patient Time attestation: Total time spent providing and/or coordinating discharge services: Discharge Plan Discharge Discharging Clinician: Rian Sahni Patient Disposition: Home Health Service Activity: may shower and no driving Diet: as tolerated and heart healthy Discharge Instructions: Per Care Coordination: Home Health services have been arranged through [facility]. [facility] can be contacted at [phone]. Please fax discharge instructions to [facility] at [phone]. Patient Instructions: Antibiotic Form, How to Stop Smoking (DC), Self Care Measures After a Stroke (DC), Stroke (DC) Stand Alone Forms: General Discharge Information Follow-up/Referrals: Valerie Ackerman MD [Other] (Please follow up with your PCP as needed) [facility] [Other] (Call to make an appointment for stroke follow up.) Marilynn Smith OD [Other] (You have an appointment on Tuesday, June 23, 2020 at 11:00am) Mindi Acevedo MD [Other] (You have an appointment on Tuesday, July 09, 2020 at 9:30am.) Discharge Medications: New potassium chloride [K-Tab] 20 mEq Tablet Extended Release 20 meq PO DAILY@0800 Qty: 30 RF: 0 ondansetron 4 mg Tablet,Disintegrating 4 mg PO Q6H PRN (Reason: Nausea And Vomiting) Qty: 15 RF: 0 lactulose 20 gram/30 mL Solution 30 g PO QAM PRN (Reason: Constipation) Qty: 30 RF: 0 Continued Adult Low Dose Aspirin 81 mg BYMOUTH DAILY Qty: 30 RF: 0 atorvastatin 80 mg Tablet 80 mg PO HS Qty: 30 RF: 0 polyethylene glycol 3350 [Miralax] 17 gram Powder In Packet 17 g PO DAILY Qty: 30 RF: 0 prednisone 20 mg Tablet 60 mg PO DAILY Qty: 30 RF: 0 sennosides-docusate sodium [Senokot-S] 8.6-50 mg Tablet 1 tab-cap PO DAILY Qty: 30 RF: 0 gabapentin 400 mg Capsule 800 mg PO TID Qty: 90 RF: 0 melatonin 3 mg Tablet 3 mg PO HS Qty: 30 RF: 0 acetaminophen 500 mg Tablet 500 mg PO Q4H MDD 4000mg PRN (Reason: Mild Pain (Scale Score 1-4)) Qty: 50 RF: 0 nicotine 7 mg/24 hr Patch 24 Hour 1 patch TRANSDERMAL DAILY Qty: 10 RF: 0 prenat.vits,xu,qba-xspl-vkypa Tablet 1 tablet PO DAILY Qty: 30 RF: 0 aripiprazole [Abilify] 5 mg Tablet 5 mg PO DAILY Qty: 30 RF: 0 duloxetine 60 mg Capsule,Delayed Release(Dr/Ec) 60 mg PO DAILY Qty: 30 RF: 0 Discontinued sulfamethoxazole-trimethoprim [Bactrim DS] 800-160 mg Tablet 1 tablet PO BID RF: 0 lidocaine [Lidoderm] 5 % Adhesive Patch,Medicated 1 patch TOPICAL DAILY PRN (Reason: Back Pain) RF: 0 heparin (porcine) 5,000 unit/mL Syringe 5,000 u
== END 2020-06-27 11:26 | disposition home health service (06) | DRG 57 ==
PROVIDERS: Admitting Provider Psychiatry & Neurology Neurology; Visit Provider Psychiatry & Neurology Neurology
DX: I69.354 Hemiplegia and hemiparesis following cerebral infarction affecting left non-dominant side (principal); I67.7 Cerebral arteritis, not elsewhere classified; I69.322 Dysarthria following cerebral infarction; I69.392 Facial weakness following cerebral infarction; I69.398 Other sequelae of cerebral infarction; H53.462 Homonymous bilateral field defects, left side; D72.828 Other elevated white blood cell count; D47.3 Essential (hemorrhagic) thrombocythemia; F31.9 Bipolar disorder, unspecified; F17.210 Nicotine dependence, cigarettes, uncomplicated; I10 Essential (primary) hypertension; Z23 Encounter for immunization
CPT/HCPCS: 36415; 80048; 85025; 92507; 92523; 97110; 97116; 97161; 97166; 97530; 97535; A9270; J1644; J7512